=== PATIENT | female | born 1990 | race Caucasian/White ===

== ENCOUNTER 2019-05-06 15:51 | Emergency (ER) | payer OTHER ==
[~2019-05-06] VITALS: Ht 170.2 cm; Wt 100.0 kg
[2019-05-06] MEDS ORDERED: SODIUM CHLORIDE 0.9% 1,000 ML IV ONE (17:07)
[2019-05-06] MEDS ORDERED: KETOROLAC 30MG/ML VIAL IV STA (17:07)
[2019-05-06] MEDS ORDERED: ONDANSETRON HCL 4MG/2ML INJ IV STA (17:07)
[2019-05-06 18:37] LABS: BASOPHILS % 0.3 % (0.0-2.0); EOSINOPHILS % 1.2 % (0.0-5.0); HEMATOCRIT. 36.6 % (36.0-48.0); HEMOGLOBIN. 12.5 g/dL (12.0-16.0); LYMPHOCYTES % 18.4 % (20.0-50.0); MEAN CORPUSCULAR HEMOGLOBIN 29.7 pg (28.0-32.0); MEAN PLATELET VOLUME 8.1 fl (7.4-10.4); MONOCYTES % 6.9 % (2.0-8.0); NEUTROPHILS % 73.2 % (40.0-76.0); PLATELET 280 x1000/uL (130-400); RED BLOOD CELL COUNT 4.21 mill/uL (4.2-5.4)
[2019-05-06 18:43] LABS: CHLORIDE 104 mEq/L (98-107)
[2019-05-06 18:47] LABS: HCG SCREEN NEGATIVE
[2019-05-06 20:02] LABS: CLARITY URINE CLOUDY (CLEAR); COLOR URINE DARK YELLOW (YELLOW); KETONES URINE 1+ (NEGATIVE); LEUKOCYTE ESTERASE URINE 1+ (NEGATIVE); NITRITE URINE POSITIVE (NEGATIVE); OCCULT BLOOD URINE 2+ (NEGATIVE); PH URINE 5.5 (4.5-8.0); PROTEIN URINE TRACE (NEGATIVE); SPECIFIC GRAVITY URINE 1.029 (1.005-1.030)
[2019-05-06] MEDS ORDERED: CEFTRIAXONE 1 G PREMIX 50 ML IV STA (20:22)
[2019-05-06] MEDS ORDERED: CEFTRIAXONE 1 G PREMIX 50 ML IV ONE (20:30)
[2019-05-06 21:20] VITALS: BP 119/64
== END 2019-05-06 21:52 | disposition home or self-care (01) ==
LOC: ER 15:51
DX: N39.0 Urinary tract infection, site not specified (principal); N83.201 Unspecified ovarian cyst, right side; M54.30 Sciatica, unspecified side
CPT/HCPCS: 36415; 76830; 76856; 80053; 81003; 83690; 84703; 85025; 96365; 96375; 99284; J0696; J1885; J2405; J7030